=== PATIENT | female | born 1965 | race Two or more races ===

== ENCOUNTER 2016-11-07 17:51 | Inpatient (IN) | payer MEDICAID ==
[~2016-11-07] VITALS: Ht 152.4 cm; Wt 60.4 kg
[~2016-11-07 17:51] MED LIST: LACT10SO PO; LEV100T PO; MET25T PO
[2016-11-07 18:50] LABS: DEFINITIVE VIEW TRANSMISSION; Hematocrit 31.9 % (36.0-46.0); Hemoglobin 10.6 g/dL (12.2-16.2); Mean Corpuscular Hemoglobin 30.6 pg (28.0-32.0); Mean Corpuscular Hgb Conc. 33.1 g/dL (32.0-36.0); Mean Corpuscular Volume 92.4 fL (80.0-100.0); Mean Platelet Volume 9.1 fL (7.4-10.4); Platelet Count (auto) 69 10^3/uL (140-450); White Blood Cell 10.5 10^3/uL (4.4-10.8)
[2016-11-07 19:11] LABS: Red Cell Distribution Width 21.4 % (11.6-16.0)
[2016-11-07 19:12] LABS: Metamyelocytes % 0; Myelocytes % 0; Promyelocytes % 0; Reactive Lymphocytes 0
[2016-11-07 19:19] LABS: Albumin 2.2 g/dL (3.4-5.0); Bilirubin, Total 3.1 mg/dL (0.2-1.0); Calcium 8.4 mg/dL (8.5-10.1); Lactic Acid w/Reflex 3.9 mmol/L (0.4-2.0); Potassium 4.5 mmol/L (3.5-5.1); Total Protein 9.2 g/dL (6.4-8.2)
[2016-11-07 19:31] LABS: REFLEX LACTIC ACID YES OR NO YES
[2016-11-07 19:53] LABS: Platelet Estimate Decreased
[2016-11-07 19:54] LABS: Anisocytosis Slight
[2016-11-07] MEDS ORDERED: MORPHINE SULFATE 4 MG/ML SYRG IV ONE (20:30)
[2016-11-07] MEDS ORDERED: SODIUM CHLORIDE 0.9% 1,000 ML IV ONE (20:30)
[2016-11-07] MEDS ORDERED: ONDANSETRON HCL 4 MG/2 ML VIAL IV ONE (20:30)
[2016-11-07 20:44] LABS: Amylase 116 U/L (25-115)
[2016-11-08] MEDS ORDERED: LORazepam 2MG/ML-1ML VIAL IV ONE (00:15)
[2016-11-08] MEDS ORDERED: ONDANSETRON HCL 4 MG/2 ML VIAL IV ONE (03:45)
[2016-11-08] MEDS ORDERED: MORPHINE SULFATE 4 MG/ML SYRG IV ONE (03:45)
[2016-11-08] MEDS: SODIUM CHLORIDE 0.9% 1,000 ML IV SCH ×2 (05:32→18:17)
[2016-11-08] MEDS ORDERED: ACETAMINOPHEN 325 MG TAB PO PRN (05:45)
[2016-11-08] MEDS: LACTULOSE 20Gm/30ML SOLN PO SCH ×3 (06:23→18:00)
[2016-11-08 07:02] LABS: Urine Bilirubin Negative (Negative); Urine Color Yellow (Yellow); Urine Glucose Normal (Normal); Urine Ketone Negative (Negative); Urine Nitrite Negative (Negative); Urine RBC 61 /hpf (0 - 4); Urine Squamous Epithelial Cell FEW /hpf (<5); Urine Urobilinogen Normal (Negative)
[2016-11-08 07:06] LABS: Urine Blood 3+ /uL (Negative)
[2016-11-08 07:29] LABS: Lactic Acid w/Reflex 2.7 mmol/L (0.4-2.0)
[2016-11-08] MEDS: LEVOTHYROXINE SODIUM 100 MCG TAB PO SCH (07:44)
[2016-11-08 07:50] LABS: REFLEX LACTIC ACID YES OR NO YES
[2016-11-08 08:00] VITALS: BP 148/80
[2016-11-08] MEDS: MORPHINE SULF INJ 2 MG/ML SYRINGE 1ML IV PRN (08:04)
[2016-11-08] MEDS: cefTRIAXone 1GM/50ML D5W 50 ML IV SCH (08:44)
[2016-11-08 09:00] VITALS: BP 144/71
[2016-11-08] MEDS ORDERED: INFLUENZA QUAD 2016-2017 0.5 ML SYRG IM ONE (10:00)
[2016-11-08] MEDS ORDERED: PNEUMOCOCCAL VACC POLYS 25 MCG/0.5 ML VIAL IM ONE (10:00)
[2016-11-08] MEDS: PANTOPRAZOLE SODIUM 40 MG/10 ML VIAL IV SCH (10:30)
[2016-11-08] MEDS: ENOXAPARIN SOD 40 MG/0.4 ML SYRINGE SC SCH (10:33)
[2016-11-08] MEDS: METOPROLOL TARTRATE 25 MG TAB PO SCH ×2 (10:35→22:25)
[2016-11-08] MEDS: HYDROmorphone HCL 2 MG/ML VL IV PRN ×3 (12:20→20:53)
[2016-11-08 13:00] VITALS: BP 136/84
[2016-11-08] MEDS: ONDANSETRON HCL 4 MG/2 ML VIAL IV PRN ×2 (13:28→16:39)
[2016-11-08] MEDS ORDERED: GASTROGRAFIN 120 ML SOL ONE (14:27)
[2016-11-08 17:00] VITALS: BP 149/89
[2016-11-08 22:00] VITALS: BP 134/74
[2016-11-09] MEDS: metroNIDAZOLE 500MG/100ML 100 ML IV SCH ×5 (00:12→23:52)
[2016-11-09] MEDS: MORPHINE SULF INJ 2 MG/ML SYRINGE 1ML IV PRN ×4 (00:45→16:28)
[2016-11-09 05:30] VITALS: BP 136/77
[2016-11-09] MEDS: LACTULOSE 20Gm/30ML SOLN PO SCH ×5 (05:52→23:53)
[2016-11-09] MEDS: SODIUM CHLORIDE 0.9% 1,000 ML IV SCH ×2 (05:52→21:20)
[2016-11-09] MEDS: LEVOTHYROXINE SODIUM 100 MCG TAB PO SCH (06:13)
[2016-11-09 07:17] LABS: Partial Thromboplastin Time 35.1 sec (22.64-33.71)
[2016-11-09 07:19] LABS: INR 1.49 (0.9-1.15); Prothrombin Time 16.1 sec (9.37-12.3)
[2016-11-09 07:22] LABS: DEFINITIVE VIEW TRANSMISSION; Hematocrit 31.9 % (36.0-46.0); Hemoglobin 10.6 g/dL (12.2-16.2); Mean Corpuscular Hemoglobin 31.2 pg (28.0-32.0); Mean Corpuscular Hgb Conc. 33.2 g/dL (32.0-36.0); Mean Corpuscular Volume 93.9 fL (80.0-100.0); Mean Platelet Volume 8.6 fL (7.4-10.4); Platelet Count (auto) 68 10^3/uL (140-450); SUSPECT VIEW TRANSMISSION; White Blood Cell 8.3 10^3/uL (4.4-10.8)
[2016-11-09 07:28] LABS: Metamyelocytes % 0; Myelocytes % 0; Promyelocytes % 0; Reactive Lymphocytes 0
[2016-11-09 07:35] LABS: BUN/Creatinine Ratio 14.8; Calcium 7.3 mg/dL (8.5-10.1); Potassium 3.6 mmol/L (3.5-5.1)
[2016-11-09 07:38] LABS: Bilirubin, Total 2.4 mg/dL (0.2-1.0); Total Protein 8.4 g/dL (6.4-8.2)
[2016-11-09 07:43] VITALS: BP 134/76
[2016-11-09 08:00] VITALS: BP 134/76
[2016-11-09] MEDS: cefTRIAXone 1GM/50ML D5W 50 ML IV SCH (09:16)
[2016-11-09] MEDS: PANTOPRAZOLE SODIUM 40 MG/10 ML VIAL IV SCH (11:02)
[2016-11-09] MEDS: METOPROLOL TARTRATE 25 MG TAB PO SCH ×2 (11:06→21:21)
[2016-11-09] MEDS: ENOXAPARIN SOD 40 MG/0.4 ML SYRINGE SC SCH (11:06)
[2016-11-09 13:28] VITALS: BP 123/73
[2016-11-09 13:44] LABS: Anisocytosis Slight; Platelet Estimate Decreased
[2016-11-09] MEDS: HYDROcodone-ACET 5/325MG TAB PO PRN (21:21)
[2016-11-09 22:00] VITALS: BP 131/70
[2016-11-10] MEDS: MORPHINE SULF INJ 2 MG/ML SYRINGE 1ML IV PRN ×2 (03:26→08:44)
[2016-11-10] MEDS: metroNIDAZOLE 500MG/100ML 100 ML IV SCH (05:36)
[2016-11-10] MEDS: LACTULOSE 20Gm/30ML SOLN PO SCH ×3 (05:36→17:53)
[2016-11-10] MEDS: LEVOTHYROXINE SODIUM 100 MCG TAB PO SCH (05:36)
[2016-11-10 05:41] VITALS: BP 103/65
[2016-11-10 06:24] LABS: Basophils # (auto) 0 uL; Basophils % (auto) 0.2 % (0.0-2.0); DEFINITIVE VIEW TRANSMISSION; Eosinophils # (auto) 0 uL; Eosinophils % (auto) 0.3 % (0.0-7.0); Hematocrit 26.8 % (36.0-46.0); Lymphocytes # (auto) 1.2 uL; Lymphocytes % (auto) 19.3 % (10.0-50.0); Mean Corpuscular Hemoglobin 30.8 pg (28.0-32.0); Mean Corpuscular Hgb Conc. 33.7 g/dL (32.0-36.0); Mean Corpuscular Volume 91.4 fL (80.0-100.0); Mean Platelet Volume 8.3 fL (7.4-10.4); Monocytes # (auto) 0.5 uL; Monocytes % (auto) 8.3 % (0.0-12.0); Neutrophils # (auto) 4.5 uL; Neutrophils % (auto) 71.9 % (37.0-80.0); Platelet Count (auto) 79 10^3/uL (140-450); White Blood Cell 6.3 10^3/uL (4.4-10.8)
[2016-11-10 06:29] LABS: Red Cell Distribution Width 20.4 % (11.6-16.0)
[2016-11-10 06:40] LABS: Calcium 6.7 mg/dL (8.5-10.1); Potassium 3.9 mmol/L (3.5-5.1)
[2016-11-10 06:42] LABS: BUN/Creatinine Ratio 10.9
[2016-11-10 07:22] LABS: Platelet Estimate Decreased
[2016-11-10 07:24] LABS: Anisocytosis Moderate
[2016-11-10 07:30] VITALS: BP 96/64
[2016-11-10] MEDS: cefTRIAXone 1GM/50ML D5W 50 ML IV SCH (08:43)
[2016-11-10 09:00] VITALS: BP 96/64
[2016-11-10] MEDS: PANTOPRAZOLE SODIUM 40 MG/10 ML VIAL IV SCH (09:51)
[2016-11-10] MEDS: ENOXAPARIN SOD 40 MG/0.4 ML SYRINGE SC SCH (09:51)
[2016-11-10] MEDS ORDERED: ERTAPENEM 1GM IN NS 50 ML IV SCH (11:00)
[2016-11-10] MEDS: SODIUM CHLORIDE 0.9% 1,000 ML IV SCH (11:45)
[2016-11-10] MEDS: ERTAPENEM SOD INJ 1 GM in SODIUM CHL 0.9% 50 ML IV SCH (12:34)
[2016-11-10] MEDS: METOPROLOL TARTRATE 25 MG TAB PO SCH ×2 (12:35→22:02)
[2016-11-10 13:00] VITALS: BP 106/63
[2016-11-10] MEDS ORDERED: METHADONE HCL 10 MG TAB PO ONE (13:15)
[2016-11-10] MEDS: SOD CHL 0.45% WITH 20MEQ KCL 1,000 ML IV SCH (14:41)
[2016-11-10 17:00] VITALS: BP 128/78
[2016-11-10 22:00] VITALS: BP 114/72
[2016-11-11] MEDS: LACTULOSE 20Gm/30ML SOLN PO SCH ×4 (00:13→18:16)
[2016-11-11] MEDS: SOD CHL 0.45% WITH 20MEQ KCL 1,000 ML IV SCH ×3 (00:14→18:17)
[2016-11-11 05:08] VITALS: BP 104/73
[2016-11-11] MEDS: LEVOTHYROXINE SODIUM 100 MCG TAB PO SCH (05:49)
[2016-11-11 07:30] VITALS: BP 119/73
[2016-11-11 09:00] VITALS: BP 119/73
[2016-11-11] MEDS: ERTAPENEM SOD INJ 1 GM in SODIUM CHL 0.9% 50 ML IV SCH (10:00)
[2016-11-11] MEDS: ENOXAPARIN SOD 40 MG/0.4 ML SYRINGE SC SCH (10:20)
[2016-11-11] MEDS: PANTOPRAZOLE SODIUM 40 MG/10 ML VIAL IV SCH (10:21)
[2016-11-11] MEDS: METOPROLOL TARTRATE 25 MG TAB PO SCH ×2 (10:21→22:49)
[2016-11-11] MEDS: METHADONE HCL 10 MG TAB PO SCH (10:22)
[2016-11-11 12:11] LABS: BUN/Creatinine Ratio 9.7; Calcium 7.1 mg/dL (8.5-10.1); Potassium 4.2 mmol/L (3.5-5.1)
[2016-11-11 13:00] VITALS: BP 110/69
[2016-11-11] MEDS: HYDROcodone-ACET 5/325MG TAB PO PRN (14:37)
[2016-11-11 17:00] VITALS: BP 115/71
[2016-11-11 22:06] VITALS: BP 98/65
[2016-11-12] MEDS: LACTULOSE 20Gm/30ML SOLN PO SCH ×2 (00:14→06:11)
[2016-11-12] MEDS: SOD CHL 0.45% WITH 20MEQ KCL 1,000 ML IV SCH (05:00)
[2016-11-12 05:16] VITALS: BP 109/82
[2016-11-12] MEDS: LEVOTHYROXINE SODIUM 100 MCG TAB PO SCH (06:11)
[2016-11-12 09:15] VITALS: BP 107/70
[2016-11-12] MEDS: PANTOPRAZOLE SODIUM 40 MG/10 ML VIAL IV SCH (10:13)
[2016-11-12] MEDS: ENOXAPARIN SOD 40 MG/0.4 ML SYRINGE SC SCH (10:14)
[2016-11-12] MEDS: METHADONE HCL 10 MG TAB PO SCH (10:15)
[2016-11-12 12:34] VITALS: BP 121/77
== END 2016-11-12 16:32 | disposition home or self-care (01) | DRG 720 ==
LOC: EDBD 17:51 → ER 17:51 → OVERFLOW 17:52 → EAST 11-08 06:59
PROVIDERS: ADMIT Nurse Practitioner; ATTEND Internal Medicine Pulmonary Disease
DX: A41.51 Sepsis due to Escherichia coli [E. coli] (principal); K76.7 Hepatorenal syndrome; E43 Unspecified severe protein-calorie malnutrition; K56.60 Unspecified intestinal obstruction; K70.31 Alcoholic cirrhosis of liver with ascites; E83.41 Hypermagnesemia; R16.1 Splenomegaly, not elsewhere classified; Z16.12 Extended spectrum beta lactamase (ESBL) resistance; I10 Essential (primary) hypertension; B19.20 Unspecified viral hepatitis C without hepatic coma; D63.8 Anemia in other chronic diseases classified elsewhere; Z93.3 Colostomy status; Z90.49 Acquired absence of other specified parts of digestive tract; Z23 Encounter for immunization
CPT/HCPCS: 36415; 71010; 74176; 74250; 80048; 80053; 81001; 82140; 82150; 83605; 83690; 84702; 85007; 85025; 85027; 85610; 85730; 87040; 87077; 87081; 87186; 96361; 96374; 96375; 96376; C9113; G0434; J0696; J1335; J2405; J3490

== ENCOUNTER 2017-01-09 16:55 | Emergency (ER) | payer MEDICAID ==
[~2017-01-09] VITALS: Ht 154.9 cm; Wt 49.9 kg
[~2017-01-09 16:55] MED LIST changes: -LACT10SO PO; +LACT10SO3 PO; +METH5TAB2 PO
[2017-01-09 16:59] VITALS: BP 106/64
== END 2017-01-10 08:02 | disposition left against medical advice (07) ==
LOC: ER 16:59
DX: R62.7 Adult failure to thrive (principal); Z53.21 Procedure and treatment not carried out due to patient leaving prior to being seen by health care provider

== ENCOUNTER 2017-01-10 17:43 | Emergency (ER) | payer MEDICAID ==
[~2017-01-10] VITALS: Ht 167.6 cm; Wt 72.6 kg
[2017-01-10 19:30] VITALS: BP 118/85
[2017-01-10] MEDS ORDERED: ERTAPENEM SOD 1 GM INJ VIAL IM ONE (20:30)
[2017-01-10] MEDS ORDERED: LIDOCAINE 1% HCL (LOCAL ANESTH.) INJ 20ML MDV XX ONE (20:45)
== END 2017-01-10 21:37 | disposition home or self-care (01) ==
LOC: EDBD 17:43 → ER 17:58
DX: N39.0 Urinary tract infection, site not specified (principal); I10 Essential (primary) hypertension; Z86.19 Personal history of other infectious and parasitic diseases; E78.5 Hyperlipidemia, unspecified
CPT/HCPCS: 96372; 99283; J1335; J2001

== ENCOUNTER 2017-12-03 23:13 | Inpatient (IN) | payer MEDICAID, OTHER ==
[~2017-12-03] VITALS: Ht 149.9 cm; Wt 61.6 kg
[~2017-12-03 23:13] MED LIST changes: -LACT10SO3 PO
[2017-12-03 23:56] LABS: Basophils # (auto) 0 uL; Eosinophils # (auto) 0.1 uL; White Blood Cell 7.2 10^3/uL (4.4-10.8)
[2017-12-03 23:58] LABS: Basophils % (auto) 0.5 % (0.0-2.0); Eosinophils % (auto) 1.6 % (0.0-7.0); Hematocrit 25.6 % (36.0-46.0); Hemoglobin 8.3 g/dL (12.2-16.2); Lymphocytes # (auto) 1.6 uL; Lymphocytes % (auto) 22.9 % (10.0-50.0); Mean Corpuscular Hgb Conc. 32.5 g/dL (32.0-36.0); Mean Corpuscular Volume 83.2 fL (80.0-100.0); Monocytes # (auto) 0.5 uL; Monocytes % (auto) 7.5 % (0.0-12.0); Neutrophils # (auto) 4.9 uL; Neutrophils % (auto) 67.5 % (37.0-80.0); Nucleated Red Blood Cells % 0.3 %; Red Blood Cells 3.08 10^6/uL (4.0-5.20)
[2017-12-04] MEDS ORDERED: HALOPERIDOL LACTATE 5 MG/ML INJ VIAL IM ONE
[2017-12-04] MEDS ORDERED: diphenhdrAMINE HCL 50 MG/1 ML VL IM ONE
[2017-12-04] MEDS ORDERED: LORazepam 2MG/ML-1ML VIAL IM ONE
[2017-12-04 00:07] LABS: Red Cell Distribution Width 21.6 % (11.8-14.3)
[2017-12-04 00:14] LABS: Alanine Aminotransferase 31 U/L (13-56); Albumin 1.8 g/dL (3.4-5.0); Anion Gap 9 (5-15); Aspartate Aminotransferase 90 U/L (15-37); BUN/Creatinine Ratio 8.2; Blood Alcohol < 3.0 mg/dL (0-5); Blood Urea Nitrogen 11 mg/dL (7-18); Calcium 7.3 mg/dL (8.5-10.1); Carbon Dioxide 25 mmol/L (21-32); Chloride 105 mmol/L (98-107); GFR African American 54 mL/min; GFR Non-African American 44 mL/min; Glucose 92 mg/dL (74-106); Sodium 139 mmol/L (136-145)
[2017-12-04 00:19] LABS: Alkaline Phosphatase 267 U/L (45-117); Bilirubin, Total 4.2 mg/dL (0.2-1.0); Magnesium 1.6 mg/dL (1.6-2.6); Total Protein 9.1 g/dL (6.4-8.2)
[2017-12-04 00:20] LABS: Potassium 2.8 mmol/L (3.5-5.1)
[2017-12-04 00:30] LABS: Platelet Count (auto) 62 10^3/uL (140-450)
[2017-12-04] MEDS: POTASSIUM CHL 20MEQ/100ML 100 ML IV SCH ×2 (00:45→03:35)
[2017-12-04] MEDS ORDERED: LORazepam 2MG/ML-1ML VIAL IV PRN (03:15)
[2017-12-04] MEDS ORDERED: ONDANSETRON HCL 4 MG/2 ML VIAL IV PRN (03:15)
[2017-12-04] MEDS ORDERED: NITROGLYCERIN 0.4 MG SL TAB SL PRN (03:15)
[2017-12-04] MEDS ORDERED: ACETAMINOPHEN 325 MG TAB PO PRN (03:15)
[2017-12-04] MEDS ORDERED: TEMAZEPAM 15 MG CAP PO PRN (03:15)
[2017-12-04] MEDS ORDERED: MORPHINE SULFATE 4 MG/ML SYR/VIAL IV PRN (03:15)
[2017-12-04] MEDS ORDERED: LACTULOSE 20Gm/30ML SOLN PO ONE (03:15)
[2017-12-04] MEDS: cefTRIAXone 1GM/10ml IVPUSH 10 ML IV SCH ×2 (06:30→09:00)
[2017-12-04] MEDS: metroNIDAZOLE 500MG/100ML 100 ML IV SCH ×3 (06:48→22:41)
[2017-12-04] MEDS: LACTULOSE 20Gm/30ML SOLN PO SCH ×3 (06:48→18:00)
[2017-12-04] MEDS: LEVOTHYROXINE SODIUM 100 MCG TAB PO SCH (07:21)
[2017-12-04 07:23] LABS: Urine Bacteria FEW /hpf (None Seen); Urine Blood 3+ /uL (Negative); Urine Specific Gravity 1.007 (1.001-1.035); Urine WBC 3 /hpf (0 - 5)
[2017-12-04 07:24] LABS: Alcohol, Urine < 3.0 mg/dL (0-5); Amphetamine Screen, Urine NEGATIVE (NEGATIVE); Barbiturate Scree,Urine NEGATIVE (NEGATIVE); Benzodiazephine Screen, Urine NEGATIVE (NEGATIVE); Cannabinoid Screen, Urine NEGATIVE (NEGATIVE); Cocaine Screen, Urine POSITIVE (NEGATIVE); Opiate Scree,Urine NEGATIVE (NEGATIVE); Phencyclidine Screen, Urine NEGATIVE (NEGATIVE)
[2017-12-04] MEDS: METOPROLOL TARTRATE 25 MG TAB PO SCH ×3 (10:00→22:40)
[2017-12-04] MEDS ORDERED: RIFAXIMIN 550 MG TAB PO SCH (10:00)
[2017-12-04] MEDS: SPIRONOLACTONE 25 MG TAB PO SCH (10:09)
[2017-12-04] MEDS: FAMOTIDINE 20 MG TAB PO SCH ×2 (10:09→22:39)
[2017-12-04] MEDS: METHADONE HCL 10 MG TAB PO SCH (10:09)
[2017-12-04] MEDS ORDERED: POTASSIUM CHL 10% (20 MEQ/15ML) 15ml ORAL SOLN PO ONE (17:30)
[2017-12-04 20:57] LABS: BUN/Creatinine Ratio 8.3; Calcium 7.1 mg/dL (8.5-10.1); Potassium 3.5 mmol/L (3.5-5.1)
[2017-12-04 22:17] VITALS: BP 125/90
[2017-12-04] MEDS: RIFAXIMIN 550 MG TAB PO SCH (22:39)
[2017-12-05] MEDS: guaiFENesin 200 MG/10 ML UD PO PRN ×2 (00:43→22:08)
[2017-12-05 05:32] VITALS: BP 115/67
[2017-12-05 06:25] LABS: Basophils # (auto) 0 uL; Platelet Count (auto) 58 10^3/uL (140-450)
[2017-12-05] MEDS: LACTULOSE 20Gm/30ML SOLN PO SCH ×5 (06:27→23:50)
[2017-12-05] MEDS: LEVOTHYROXINE SODIUM 100 MCG TAB PO SCH (06:27)
[2017-12-05] MEDS: metroNIDAZOLE 500MG/100ML 100 ML IV SCH (06:27)
[2017-12-05 06:32] LABS: Basophils % (auto) 0.7 % (0.0-2.0); Eosinophils # (auto) 0.2 uL; Eosinophils % (auto) 2.7 % (0.0-7.0); Hemoglobin 7.6 g/dL (12.2-16.2); Lymphocytes % (auto) 15.8 % (10.0-50.0); Mean Corpuscular Hemoglobin 27.4 pg (28.0-32.0); Mean Corpuscular Hgb Conc. 31.8 g/dL (32.0-36.0); Mean Corpuscular Volume 86.1 fL (80.0-100.0); Monocytes # (auto) 0.7 uL; Neutrophils # (auto) 4.4 uL; Neutrophils % (auto) 69.8 % (37.0-80.0); Nucleated Red Blood Cells % 0.5 %; Red Blood Cells 2.79 10^6/uL (4.0-5.20); Red Cell Distribution Width 21.3 % (11.8-14.3); White Blood Cell 6.3 10^3/uL (4.4-10.8)
[2017-12-05 06:36] LABS: Albumin 1.4 g/dL (3.4-5.0); BUN/Creatinine Ratio 7.5; Calcium 7.1 mg/dL (8.5-10.1); Potassium 3.7 mmol/L (3.5-5.1)
[2017-12-05 06:42] LABS: Bilirubin, Total 3.4 mg/dL (0.2-1.0); Total Protein 8.1 g/dL (6.4-8.2)
[2017-12-05 08:00] VITALS: BP 128/90
[2017-12-05 09:00] VITALS: BP 128/90
[2017-12-05] MEDS: METHADONE HCL 10 MG TAB PO SCH (09:32)
[2017-12-05] MEDS: cefTRIAXone 1GM/10ml IVPUSH 10 ML IV SCH (09:34)
[2017-12-05] MEDS: METOPROLOL TARTRATE 25 MG TAB PO SCH ×2 (09:34→22:09)
[2017-12-05] MEDS: SPIRONOLACTONE 25 MG TAB PO SCH (09:34)
[2017-12-05] MEDS: FAMOTIDINE 20 MG TAB PO SCH ×2 (09:35→22:09)
[2017-12-05] MEDS: RIFAXIMIN 550 MG TAB PO SCH ×2 (09:44→22:09)
[2017-12-05] MEDS ORDERED: METHADONE HCL 10 MG TAB PO ONE (11:15)
[2017-12-05 12:11] VITALS: BP 124/74
[2017-12-05 17:13] VITALS: BP 123/83
[2017-12-05 22:00] VITALS: BP 137/76
[2017-12-06 05:00] VITALS: BP 105/61
[2017-12-06 05:51] LABS: Basophils # (auto) 0 uL; Eosinophils # (auto) 0.2 uL; Eosinophils % (auto) 3.1 % (0.0-7.0); Hemoglobin 8.1 g/dL (12.2-16.2); Mean Corpuscular Hemoglobin 26.9 pg (28.0-32.0); Neutrophils # (auto) 3.7 uL; Nucleated Red Blood Cells % 0.3 %; Platelet Count (auto) 59 10^3/uL (140-450); White Blood Cell 5.8 10^3/uL (4.4-10.8)
[2017-12-06 05:54] LABS: Basophils % (auto) 0.4 % (0.0-2.0); Hematocrit 25.5 % (36.0-46.0); Lymphocytes # (auto) 1.2 uL; Lymphocytes % (auto) 20.7 % (10.0-50.0); Mean Corpuscular Hgb Conc. 31.7 g/dL (32.0-36.0); Mean Corpuscular Volume 84.9 fL (80.0-100.0); Monocytes # (auto) 0.7 uL; Monocytes % (auto) 11.6 % (0.0-12.0); Neutrophils % (auto) 64.2 % (37.0-80.0); Red Cell Distribution Width 21.4 % (11.8-14.3)
[2017-12-06 06:02] LABS: INR 1.67 (0.9-1.15); Partial Thromboplastin Time 46.9 sec (22.64-33.71); Prothrombin Time 18.3 sec (9.37-12.3)
[2017-12-06 06:10] LABS: Calcium 8.1 mg/dL (8.5-10.1); Potassium 3.7 mmol/L (3.5-5.1)
[2017-12-06 06:12] LABS: BUN/Creatinine Ratio 9.4
[2017-12-06] MEDS: LEVOTHYROXINE SODIUM 100 MCG TAB PO SCH (06:20)
[2017-12-06] MEDS: LACTULOSE 20Gm/30ML SOLN PO SCH ×3 (06:20→17:45)
[2017-12-06 08:00] VITALS: BP 121/73
[2017-12-06 09:00] VITALS: BP 121/73
[2017-12-06] MEDS: SPIRONOLACTONE 25 MG TAB PO SCH (10:23)
[2017-12-06] MEDS: METOPROLOL TARTRATE 25 MG TAB PO SCH ×2 (10:23→21:46)
[2017-12-06] MEDS: FAMOTIDINE 20 MG TAB PO SCH ×2 (10:24→21:45)
[2017-12-06] MEDS: METHADONE HCL 10 MG TAB PO SCH (10:24)
[2017-12-06] MEDS: RIFAXIMIN 550 MG TAB PO SCH (12:33)
[2017-12-06 12:46] VITALS: BP 134/76
[2017-12-06] MEDS ORDERED: FUROSEMIDE 20 MG TAB PO ONE (13:15)
[2017-12-06 17:25] VITALS: BP 128/72
[2017-12-06] MEDS: guaiFENesin 200 MG/10 ML UD PO PRN (21:47)
[2017-12-06 22:00] VITALS: BP 137/75
[2017-12-07] MEDS: LACTULOSE 20Gm/30ML SOLN PO SCH ×5 (00:22→22:59)
[2017-12-07] MEDS: RIFAXIMIN 550 MG TAB PO SCH ×3 (00:22→22:59)
[2017-12-07 05:00] VITALS: BP 124/78
[2017-12-07] MEDS: LEVOTHYROXINE SODIUM 100 MCG TAB PO SCH (06:31)
[2017-12-07 06:55] LABS: Potassium 3.8 mmol/L (3.5-5.1)
[2017-12-07 07:03] LABS: Albumin 1.6 g/dL (3.4-5.0); Bilirubin, Total 3.3 mg/dL (0.2-1.0); Calcium 8.6 mg/dL (8.5-10.1); Total Protein 8.1 g/dL (6.4-8.2)
[2017-12-07 08:16] VITALS: BP 118/71
[2017-12-07] MEDS: SPIRONOLACTONE 25 MG TAB PO SCH (09:33)
[2017-12-07] MEDS: METOPROLOL TARTRATE 25 MG TAB PO SCH ×2 (09:33→22:58)
[2017-12-07] MEDS: METHADONE HCL 10 MG TAB PO SCH (09:34)
[2017-12-07] MEDS: FAMOTIDINE 20 MG TAB PO SCH ×2 (09:35→22:59)
[2017-12-07] MEDS ORDERED: RIFA550T PO (10:15)
[2017-12-07] MEDS ORDERED: SPIR25TA88 PO (10:15)
[2017-12-07] MEDS ORDERED: LACT10SO3 PO (10:15)
[2017-12-07 12:25] VITALS: BP 120/70
[2017-12-07 16:33] VITALS: BP 122/74
[2017-12-07 22:10] VITALS: BP 122/72
[2017-12-08 05:10] VITALS: BP 107/61
[2017-12-08] MEDS: LACTULOSE 20Gm/30ML SOLN PO SCH (06:00)
[2017-12-08] MEDS: LEVOTHYROXINE SODIUM 100 MCG TAB PO SCH (06:01)
== END 2017-12-08 07:50 | disposition home or self-care (01) | DRG 280 ==
LOC: EDUNIT# 23:13 → EDBD 23:13 → ER 23:13 → TELE 23:14 → TELE-CENTR 12-04 17:28 → CENTRAL 12-05 13:08
PROVIDERS: ADMIT Nurse Practitioner; ATTEND Internal Medicine
DX: K70.40 Alcoholic hepatic failure without coma (principal); K70.31 Alcoholic cirrhosis of liver with ascites; K76.7 Hepatorenal syndrome; G93.41 Metabolic encephalopathy; E43 Unspecified severe protein-calorie malnutrition; K76.6 Portal hypertension; I11.9 Hypertensive heart disease without heart failure; D69.6 Thrombocytopenia, unspecified; R16.1 Splenomegaly, not elsewhere classified; N18.3 Chronic kidney disease, stage 3 (moderate); F41.9 Anxiety disorder, unspecified; G47.00 Insomnia, unspecified; G89.4 Chronic pain syndrome; F14.10 Cocaine abuse, uncomplicated; B19.20 Unspecified viral hepatitis C without hepatic coma; D64.9 Anemia, unspecified; E78.5 Hyperlipidemia, unspecified; E87.6 Hypokalemia; K52.9 Noninfective gastroenteritis and colitis, unspecified; Z59.0 Homelessness; Z83.3 Family history of diabetes mellitus; Z79.899 Other long term (current) drug therapy
CPT/HCPCS: 36415; 70450; 71045; 74176; 76705; 80048; 80053; 80307; 80320; 81001; 82140; 82962; 83735; 83880; 84484; 85025; 85610; 85730; 93005; 96365; 96366; 96372; J3480; J3490